=== PATIENT | male | born 1975 ===

== ENCOUNTER 2023-05-01 00:31 | Emergency (ER) | payer SELFPAY ==
[2023-05-01 00:32] VITALS: BP 179/106; PULSE 60; RESP 6; TEMP 36.4; O2SAT 99
--- NOTE | 2023-05-01 01:37 | PC.NURSE ---
Pt reports is feeling much better and would like [email or web address] go. Pt axox4 with a steady gait.
== END 2023-05-01 01:37 | disposition left against medical advice (07) ==
DX: R51.9 Headache, unspecified (principal)
CPT/HCPCS: 99199